=== PATIENT | female | born 1980 | race Caucasian/White ===

== ENCOUNTER 2018-03-19 09:33 | Emergency (ER) | payer MEDICAID, OTHER ==
[~2018-03-19] VITALS: Ht 157.5 cm; Wt 86.2 kg
[2018-03-19 09:36] VITALS: BP 112/67
--- NOTE | 2018-03-19 09:43 | NUR ---
PT AMBULATES TO BED 5
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
--- NOTE | 2018-03-19 09:53 | NUR ---
DR ORELLANA EVALUATING AT BEDSIDE
[2018-03-19] MEDS ORDERED: KETOROLAC 60 MG/2 ML VIAL IM ONE (10:00)
[2018-03-19 10:22] VITALS: BP 120/70
== END 2018-03-19 10:22 | disposition home or self-care (01) ==
LOC: MED 09:33
DX: S61.101A Unspecified open wound of right thumb with damage to nail, initial encounter (principal); X58.XXXA Exposure to other specified factors, initial encounter; Y93.89 Activity, other specified; Y92.89 Other specified places as the place of occurrence of the external cause; Y99.8 Other external cause status
CPT/HCPCS: 96372; 99283; J1885

== ENCOUNTER 2019-02-28 18:48 | Emergency (ER) | payer OTHER ==
[~2019-02-28] VITALS: Ht 154.9 cm; Wt 85.7 kg
[2019-02-28 18:56] VITALS: BP 115/65
[2019-02-28 20:27] VITALS: BP 115/65
== END 2019-02-28 20:25 | disposition home or self-care (01) ==
LOC: MED 18:48
DX: S90.111A Contusion of right great toe without damage to nail, initial encounter (principal); W22.8XXA Striking against or struck by other objects, initial encounter; Y93.89 Activity, other specified; Y92.89 Other specified places as the place of occurrence of the external cause; Y99.8 Other external cause status
CPT/HCPCS: 73660; 99283; Q0092

== ENCOUNTER 2020-02-09 13:57 | Emergency (ER) | payer OTHER ==
[~2020-02-09] VITALS: Ht 152.4 cm; Wt 85.7 kg
[2020-02-09 14:09] VITALS: BP 113/69
--- NOTE | 2020-02-09 14:16 | NUR ---
TAKEN TO BED 12
[2020-02-09] MEDS ORDERED: NACL 0.9% 1,000 ML IV ONE (14:40)
[2020-02-09] MEDS ORDERED: KETOROLAC 30 MG/ML VIAL IVP ONE (14:40)
[2020-02-09] MEDS ORDERED: cefTRIAXone 1,000 MG VIAL ONE (14:49)
[2020-02-09 15:05] LABS: BASOPHILS % (AUTO) 0.2 % (0.0-2.0); HEMOGLOBIN 12.7 g/dL (12.0-16.0); LYMPHOCYTES # (AUTO) 1.5 K/uL (2.5-16.5); MEAN CORPUSCULAR HEMOGLOBIN 25 pg (27-31); MEAN CORPUSCULAR HGB CONC 33 g/dL (33-37); MEAN CORPUSCULAR VOLUME 77.2 fL (80-94); MONOCYTES # (AUTO) 0.5 K/uL (0.8-1.0); MONOCYTES % (AUTO) 8.7 % (1.7-9.3); NEUTROPHILS % (AUTO) 66.1 % (42.2-75.2); PLATELET COUNT (AUTO) 261 K/uL (140-450); RED BLOOD CELL COUNT(AUTO) 5.05 MIL/uL (4.20-5.40); RED CELL DISTRIBUTION WIDTH 14.6 % (11.6-13.7); WHITE BLOOD COUNT (AUTO) 6.1 K/uL (4.8-10.8)
[2020-02-09 15:05] LABS: APPEARANCE,URINE CLEAR (CLEAR); BILIRUBIN,URINE 1+ (NEGATIVE); BLOOD, URINE 3+ (NEGATIVE); COLOR,URINE YELLOW (YELLOW); LEUKOCYTE ESTERASE ,URINE 2+ (NEGATIVE); NITRITE, URINE NEGATIVE (NEGATIVE); PH,URINE 6.5 (5.0-9.0); UGLUCOSE NEGATIVE (NEGATIVE)
[2020-02-09 15:10] LABS: RBC,URINE 11-20 (MOD) /HPF (0-5); WBC,URINE 16-25 (MOD) /HPF (0-5)
[2020-02-09 15:23] LABS: ALBUMIN 3.3 g/dL (3.4-5.0); CARBON DIOXIDE 27.1 mmol/L (21-32); CREATININE 0.9 mg/dL (0.6-1.3); POTASSIUM 3.1 mmol/L (3.5-5.1); TOTAL BILIRUBIN 0.5 mg/dL (0.0-1.0)
[2020-02-09 16:59] VITALS: BP 113/69
== END 2020-02-09 16:56 | disposition home or self-care (01) ==
LOC: MED 13:57
DX: R63.0 Anorexia (principal); N39.0 Urinary tract infection, site not specified; R11.2 Nausea with vomiting, unspecified
CPT/HCPCS: 36415; 80053; 81001; 81025; 85025; 87040; 87086; 96365; 96375; 99284; J0696; J1885; J7030

== ENCOUNTER 2020-05-13 08:15 | Emergency (ER) | payer OTHER ==
[~2020-05-13] VITALS: Ht 157.5 cm; Wt 87.5 kg
[2020-05-13 08:20] VITALS: BP 103/71
--- NOTE | 2020-05-13 08:33 | NUR ---
C/O RIGHT SHOULDER PAIN 02/02 SHARP X2 WEEKS. PAIN INCREASED WITH MOVEMENT. PATIENT DENIES TRAUMA OR INJURY. BED IN LOW POSITION, SIDE RAIL UP X1, PATIENT PLACED IN GOWN.
[2020-05-13] MEDS ORDERED: KETOROLAC 60 MG/2 ML VIAL IM ONE (08:35)
--- NOTE | 2020-05-13 08:35 | NUR ---
DR. ORELLANA BEDSIDE EVALUATING PATIENT
[2020-05-13 09:31] VITALS: BP 103/71
--- NOTE | 2020-05-13 09:31 | NUR ---
Patient discharged with v/s stable. Written and verbal after care instructions given and explained. Patient alert, oriented and verbalized understanding of instructions. Ambulatory with steady gait. All questions addressed prior to discharge. ID band removed. Patient advised to follow up with PMD. Rx of IBUPROFEN & NORCO given. Patient educated on indication of medication including possible reaction and side effects. Opportunity to ask questions provided and answered.
== END 2020-05-13 09:31 | disposition home or self-care (01) ==
LOC: MED 08:15
DX: M25.511 Pain in right shoulder (principal)
CPT/HCPCS: 96372; 99283; J1885

== ENCOUNTER 2020-05-25 12:13 | Emergency (ER) | payer OTHER ==
[~2020-05-25] VITALS: Ht 157.5 cm; Wt 85.7 kg
[2020-05-25 12:53] VITALS: BP 110/84
--- NOTE | 2020-05-25 14:15 | NUR ---
Note kaila in ED - 05/25/20 at 1423 by MED1 C/O R SHOULDER PAIN AND No x-rays are done just a physical exam. Patient was prescribed [place] and discharged home. Patient states she did not want take the [place] because it was a narcotic. She comes back today with still the same complaints and no improvement with her symptoms. Patient denies any fevers or chills, known trauma, cough, shortness of breath neck pain, chest pain or abdominal pain. Patient's appetite has been normal.
--- NOTE | 2020-05-25 14:23 | NUR ---
C/O R SHOULDER PAIN AND WAS SEEN AT [facility] FOR THE SAME PAIN A FEW DAYS PRIOR. DENIES INJURY
[2020-05-25 14:33] VITALS: BP 108/77
--- NOTE | 2020-05-25 14:33 | NUR ---
Patient discharged with v/s stable. Written and verbal after care instructions given and explained. Patient alert, oriented and verbalized understanding of instructions. Ambulatory with steady gait. All questions addressed prior to discharge. ID band removed. Patient advised to follow up with PMD. Rx of MOTRIN, PREDNISONE given. Patient educated on indication of medication including possible reaction and side effects. Opportunity to ask questions provided and answered.
== END 2020-05-25 14:33 | disposition home or self-care (01) ==
LOC: MED 12:13
DX: M25.511 Pain in right shoulder (principal)
CPT/HCPCS: 73030; 99283

== ENCOUNTER 2021-01-17 13:18 | Emergency (ER) | payer OTHER ==
[~2021-01-17] VITALS: Ht 160 cm; Wt 81.6 kg
[2021-01-17 14:12] VITALS: BP 128/65
[2021-01-17] MEDS ORDERED: IBUP-2213 PO (16:36)
[2021-01-17] MEDS ORDERED: BENZ1LOZ98 PO (16:36)
[2021-01-17 17:04] VITALS: BP 128/65
== END 2021-01-17 17:04 | disposition home or self-care (01) ==
LOC: MED 13:18
DX: K12.1 Other forms of stomatitis (principal); J02.9 Acute pharyngitis, unspecified; Z79.899 Other long term (current) drug therapy
CPT/HCPCS: 99282

== ENCOUNTER 2021-02-10 08:35 | Emergency (ER) | payer OTHER ==
[~2021-02-10] VITALS: Ht 162.6 cm; Wt 72.6 kg
[~2021-02-10 08:35] MED LIST: BENZ1LOZ98 PO; IBUP-2213 PO
[2021-02-10 08:40] VITALS: BP 123/77
--- NOTE | 2021-02-10 09:04 | NUR ---
Patient ambulated to bed 1 with a steady gait.
--- NOTE | 2021-02-10 09:07 | NUR ---
Patient is a 40 y/o female c/o throbbing (L) 2nd toe pain 10/10 that radiates to foot. Per patient, had a nail that was coming off so she decided to pull it off. Patient A&Ox4, ambulatory with a steady gait, respirations even and unlabored, denies CP, SOB, abd pain, dysuria, and capillary refill <2 seconds. Mother with the patient at the bedside. PMH:denies NKA Rx: denies
[2021-02-10 09:51] VITALS: BP 123/77
--- NOTE | 2021-02-10 09:51 | NUR ---
Patient discharged with v/s stable. Written and verbal after care instructions given and explained. Patient verbalized understanding. Ambulatory with steady gait. All questions addressed prior to discharge. Advised to follow up with PMD.
== END 2021-02-10 08:51 | disposition home or self-care (01) ==
LOC: MED 08:35
DX: S91.205A Unspecified open wound of left lesser toe(s) with damage to nail, initial encounter (principal); Z79.899 Other long term (current) drug therapy; Z79.1 Long term (current) use of non-steroidal anti-inflammatories (NSAID); X58.XXXA Exposure to other specified factors, initial encounter; Y92.89 Other specified places as the place of occurrence of the external cause; Y93.89 Activity, other specified; Y99.8 Other external cause status
CPT/HCPCS: 99281

== ENCOUNTER 2021-05-10 18:35 | Emergency (ER) | payer OTHER ==
[~2021-05-10] VITALS: Ht 154.9 cm; Wt 89.4 kg
[2021-05-10 18:39] VITALS: BP 116/63
[2021-05-10] MEDS ORDERED: SODIUM CHLORIDE FLUSH 10 ML SYR IVF STA (21:13)
[2021-05-10 21:58] LABS: BASOPHILS % (AUTO) 0.2 % (0.0-2.0); EOSINOPHILS % (AUTO) 0.2 % (0.0-4.0); HEMATOCRIT 35.3 % (36-48); HEMOGLOBIN 11.6 g/dL (12.0-16.0); LYMPHOCYTES # (AUTO) 1.2 K/uL (2.5-16.5); LYMPHOCYTES % (AUTO) 9.7 % (20.5-51.1); MEAN CORPUSCULAR HEMOGLOBIN 25 pg (27-31); MEAN CORPUSCULAR HGB CONC 33 g/dL (33-37); MEAN CORPUSCULAR VOLUME 76.2 fL (80-94); MONOCYTES # (AUTO) 0.7 K/uL (0.8-1.0); MONOCYTES % (AUTO) 5.6 % (1.7-9.3); NEUTROPHILS # (AUTO) 10.1 K/uL (1.8-7.7); NEUTROPHILS % (AUTO) 84.3 % (42.2-75.2); PLATELET COUNT (AUTO) 353 K/uL (140-450); RED BLOOD CELL COUNT(AUTO) 4.64 MIL/uL (4.20-5.40); RED CELL DISTRIBUTION WIDTH 15.7 % (11.6-13.7)
[2021-05-10] MEDS ORDERED: DICYCLOMINE HCL LIQUID 20 MG, ALUMINUM HYD/MAG/SIMETHICONE 30 ML, LIDOCAINE VISCOUS 2% ... PO ONE ×3 (22:10)
[2021-05-10 22:20] LABS: APPEARANCE,URINE CLEAR (CLEAR); BILIRUBIN,URINE NEGATIVE (NEGATIVE); BLOOD, URINE NEGATIVE (NEGATIVE); COLOR,URINE YELLOW (YELLOW); LEUKOCYTE ESTERASE ,URINE NEGATIVE (NEGATIVE); NITRITE, URINE NEGATIVE (NEGATIVE); PH,URINE 6.5 (5.0-9.0); UGLUCOSE NEGATIVE (NEGATIVE)
[2021-05-10 22:31] LABS: ALBUMIN 3.8 g/dL (3.4-5.0); ANION GAP 12.9 (8-16); CARBON DIOXIDE 25.7 mmol/L (21-32); CREATININE 0.7 mg/dL (0.6-1.3); POTASSIUM 3.6 mmol/L (3.5-5.1); TOTAL BILIRUBIN 0.9 mg/dL (0.0-1.0)
--- NOTE | 2021-05-10 23:19 | NUR ---
40 Y/O F BIB SELF FROM HOME, C/O EPIGASTRIC PAIN SINCE THIS MORNING, HAD 1 EMESIS EPISODE. DENIES N/V/D AT THIS TIME. DENIES DYSURIA OR HEMATURIA.
[2021-05-10] MEDS ORDERED: FAMO-90 PO (23:42)
[2021-05-11] MEDS ORDERED: diphenhydrAMINE 12.5 MG/5 ML UDC ONE (00:28)
[2021-05-11] MEDS ORDERED: ALUMINUM HYD/MAG/SIMETHICONE 30 ML UDC ONE (00:28)
[2021-05-11 00:38] VITALS: BP 111/60
== END 2021-05-11 00:40 | disposition home or self-care (01) ==
LOC: MED 18:35
DX: R10.10 Upper abdominal pain, unspecified (principal); R11.2 Nausea with vomiting, unspecified; Z79.899 Other long term (current) drug therapy
CPT/HCPCS: 36415; 80053; 81003; 81025; 83690; 85025; 99283; Q0163